=== PATIENT | female | born 1955 | race Hispanic/Latino ===

== ENCOUNTER 2024-07-15 06:00 | Day surgery (SDC) | payer OTHER ==
[2024-07-13 13:07] VITALS: BP 168/56; PULSE 70; RESP 18; TEMP 97.5
--- NOTE | 2024-07-14 21:12 | EKG ---
[facility] Test Date: 2024-07-13 Test Time: 12:43:41 Pat Name: SHIREEN LE Department: [facility] Room: [facility] Gender: Female Market Relationship Manager: [id number] : 1955 Requested By: JENNY TORREZ Order Number: [id number] Reading MD: Monica Quintanilla Measurements Intervals [place] Rate: 67 P: 33 HI: 128 QRS: 49 QRSD: 135 T: 31 QT: 420 QTc: 443 Interpretive Statements Sinus rhythm Right bundle branch block No previous ECG available for comparison Electronically Signed On 07-15-2024 09:33:05 CDT by Monica Quintanilla Please click the below link to view image of tracing.
[~2024-07-15] VITALS: Ht 149.9 cm; Wt 86.0 kg
[2024-07-15] VITALS (16 sets, daily range): BP systolic 97–156; BP diastolic 40–68; PULSE 51–84; RESP 15–18; TEMP 97–97.9
[~2024-07-15 06:00] MED LIST: ATOR10 PO; GLIP5TAB15 PO; LISI20TA24 PO; NAPR-1196 PO; TRAM100C3 PO
[2024-07-15] MEDS: ceFAZolin SODIUM 2 GM VIAL ONE (06:06)
[2024-07-15] MEDS ORDERED: acetaMINOPHEN 100 ML ONE (06:53)
[2024-07-15] MEDS ORDERED: FAMOTIDINE 20MG VIAL IV ONE (06:53)
[2024-07-15] MEDS ORDERED: ketaMINE 50MG/ML SYRINGE 50 MG/ML DISP.SYRIN ONE (07:01)
[2024-07-15] MEDS ORDERED: proPOFol 10 MG/ML 20ML VIAL IV ONE (07:05)
[2024-07-15] MEDS ORDERED: rocuRONium bROMide 10MG/1ML 5ML VL ONE (07:05)
[2024-07-15] MEDS ORDERED: FENTanyl CITRate PF 50 MCG/1 ML 2ML VIAL ONE (07:05)
[2024-07-15] MEDS ORDERED: LIDOCAINE PF 100MG/5ML (2%) SYRINGE 5ML ONE (07:06)
[2024-07-15] MEDS ORDERED: dexaMETHasone SOD PHOSPHATE 10MG/ML 1ML VIAL ONE (08:09)
[2024-07-15] MEDS ORDERED: ondanSETRON 4MG INJ ONE (08:09)
[2024-07-15] MEDS: 0.9%NACL 1000ML 1,000 ML IV ONE (08:39)
[2024-07-15] MEDS ORDERED: NEOSTIGMINE METHYLSULFATE 1MG/ML IV ONE (08:52)
[2024-07-15] MEDS ORDERED: GLYCOPYRROLATE 0.2 MG/ML 5 ML VIAL ONE (08:52)
[2024-07-15] MEDS ORDERED: SUGAMMADEX SODIUM 200 MG/2 ML VIAL IV ONE (09:05)
[2024-07-15] MEDS ORDERED: TRAM100C3 PO (09:09)
--- NOTE | 2024-07-15 09:21 | OP ---
Operative Note: DATE OF PROCEDURE: 07/15/24 SURGEON: JENNY TORREZ MD TUBE MACHINE OPERATOR HELPER: [Dhaval Borjas CFA] ANESTHESIA: [General anesthesia] ANESTHESIOLOGIST/RETARDER OPERATOR: [Nerissa Puckett CRNA] PREOPERATIVE DIAGNOSIS: [Left knee medial meniscal tear, lateral meniscal tear] POSTOPERATIVE DIAGNOSIS: [Left knee medial meniscal tear including body and posterior horn of the meniscus] PROCEDURE: [Left knee diagnostic arthroscopy partial medial meniscectomy] ESTIMATED BLOOD LOSS: [None] INDICATIONS: [68-year-old female with history of an injury that she sustained and developed pain in her knee. MRI compatible with a contusion of the bone possible chondral injury. Medial meniscal tear posterior horn, complex and lateral meniscal tear anterior horn. The patient is brought to the operating room for arthroscopic procedure that she understood, risks, benefits possible complications and agreed signed the consent] DESCRIPTION OF PROCEDURE: [After adequate general anesthesia was achieved the p omayra's left lower extremity was prepped and draped in the usual manner previous placement of the tourniquet in the proximal thigh. The extremity was elevated and exsanguinated with an Esmarch band and the tourniquet was inflated to 250 mmHg the Esmarch band been then removed. The leg was brought to the side of the bed with the knee in 90 degrees of flexion and 2 small incisions were made medial and lateral to the patella tendon at the joint line level through the skin followed by blunt dissection with a trocar penetrating into the joint. Through the lateral portal the arthroscopic cannula was inserted and then after the cannula was removed the scope was inserted in the sheath bringing the knee on the table in extension placing the scope in the suprapatellar area which was noted to be normal with a normal quadriceps tendon and patellofemoral joint. The knee was then brought into flexion on the side of the bed and the scope follow into the medial compartment we found that the patient had also a medial synovial plica that was rubbing against the cartilage and this was excised with the use of the shaver. After reaching of the medial compartment the patient had a very obvious posterior horn and body meniscal tear where the posterior fragment of the tear was flipped behind the joint holding the root of the meniscus. With the use of the meniscal shaver as well as an trimmers we procee ded to remove the torn tissue leaving hook stable tissue removing all the debris. We then proceeded to bring the scope to the intercondylar notch noticing that the ACL and PCL were normal and then with a [id number] position of the knee we were able to visualize the lateral compartment which show normal characteristics of the meniscus and the articular surface. The arthroscope was then removed from the joint as well as the fluid and we then proceeded to close the incisions with #3-0 nylon simple stitches. A soft dressing was applied to cover the small incisions followed by application of an Jose A bandage. The drapes were then removed after the tourniquet was deflated and the patient was transferred to the stretcher and then taken to recovery room for follow-up by anesthesia. There were no complications during the procedure.] JENNY TORREZ MD Jul 15, 2024 09:21
== END 2024-07-15 11:02 | disposition home or self-care (01) ==
LOC: DAH 06:00
PROVIDERS: ATTEND Orthopaedic Surgery
DX: S83.242A Other tear of medial meniscus, current injury, left knee, initial encounter (principal); S83.282A Other tear of lateral meniscus, current injury, left knee, initial encounter; M17.9 Osteoarthritis of knee, unspecified; I45.10 Unspecified right bundle-branch block; I10 Essential (primary) hypertension; E11.9 Type 2 diabetes mellitus without complications; E66.9 Obesity, unspecified; Z88.8 Allergy status to other drugs, medicaments and biological substances; Z68.37 Body mass index [BMI] 37.0-37.9, adult; X58.XXXA Exposure to other specified factors, initial encounter; Y93.89 Activity, other specified; Y92.89 Other specified places as the place of occurrence of the external cause; Y99.8 Other external cause status
CPT/HCPCS: 93005; 29881; 82948 ×2; A4663; A4649 ×2; J3490 ×4; J3010; J1100; J7030; J2003; J2704; J2405; J2710; J0690; A6223; A4215; A4223; A4213; A4222; A4221; A6450